=== PATIENT | female | born 1990 | race Caucasian/White ===

== ENCOUNTER → 2017-01-29 | Outpatient (CLI) | payer OTHER ==
[~2017-01-29] MED LIST: CYCL-375 PO; PROC-14 PO; SERT100T PO
--- NOTE | 2017-01-29 11:09 | DI ---
INDICATION: ITS.REASON: R22.2 LOCALIZED SWELLING, MASS AND LUMP, TRUNK PROCEDURE: CHEST 2-VIEWS UPRIGHT (PA \T\ LAT) Encounter: Initial COMPARISON: None FINDINGS: The lungs are clear without evidence of focal abnormal airspace opacity. There is no pleural effusion or pneumothorax. The heart size, mediastinal contours and pulmonary vascularity are within normal limits. There is no significant skeletal abnormality. IMPRESSION: No acute cardiopulmonary disease. .
--- NOTE | 2017-01-29 11:10 | DI ---
Indication: ITS.REASON: R22.2 LOCALIZED SWELLING, MASS AND LUMP, TRUNK PROCEDURE: STERNUM: Encounter: Initial Comparison: None Findings/ Impression: No acute displaced sternal fracture identified. No lytic or blastic osseous lesions seen. .
== END ==
LOC: IMA 10:28
PROVIDERS: ATTEND Family Medicine
DX: R22.2 Localized swelling, mass and lump, trunk (principal)